=== PATIENT | male | born 1995 | race African-American/Black ===

== ENCOUNTER 2021-10-04 06:45 | Emergency (ER) | payer SELFPAY ==
[2021-10-04] VITALS (21 sets, daily range): BP systolic 125–153; BP diastolic 51–90; PULSE 62–85; RESP 9–20; TEMP 37; O2SAT 98–100
--- NOTE | ~2021-10-04 | XR_ITS ---
EXAMINATION: XR chest 2V DATE: 10/04/2021 07:50 INDICATION: Midsternal chest pain. Epigastric abdominal pain. TECHNIQUE: Frontal and lateral views of the chest were obtained. COMPARISON: None. FINDINGS: The chest demonstrates clear lungs without pneumonia, pleural effusion, or pneumothorax. Th e heart size is normal. There is mild anterior wedging of a midthoracic vertebral body, likely chroni c. IMPRESSION: 1. No acute cardiopulmonary disease. Reviewed, dictated and finalized at location A.
--- NOTE | 2021-10-04 06:55 | ECG_ITS ---
Measurements Intervals [place] Rate: 62 P: 45 HI: 111 QRS: 66 QRSD: 102 T: 44 QT: 391 QTc: 397 Interpretive Statements SINUS RHYTHM WITH SHORT HI INTERVAL NO PREVIOUS ECG AVAILABLE FOR COMPARISON Electronically Signed On 10-04-2021 8:27:40 CDT by Jeff Carrion M.D.
--- NOTE | 2021-10-04 07:09 | ED.ANXIETY ---
HPI - Anxiety General Chief Complaint: Anxiety Stated Complaint: anxiety Time Seen by Provider: 10/04/21 06:59 History of Present Illness HPI narrative: This is a 26-year-old male with reported history of anxiety, presenting emergency department complaining of chest pain for the past hour. He states he started having pressure-like, 4/10, chest pain associated with palpitations at home while at rest that seems different than his usual anxiety attack. This was not associated with nausea or vomiting or cold sweats. He states that the symptoms improved after arrival at the emergency department. Related Data Home Medications Medication Instructions Recorded Confirmed No Home Medications 10/04/21 10/04/21 Allergies Allergy/AdvReac Type Severity Reaction Status Date / Time No Known Allergies Allergy Verified 10/04/21 06:53 Review of Systems Review of Systems: CONSTITUTIONAL: Denies fever, chills, or sweats. EYES: Denies visual changes, redness, or discharge. ENT: Denies rhinorrhea, congestion, sore throat, or otalgia. CARDIOVASCULAR: +chest pain, palpitations (resolved) Denies edema. RESPIRATORY: Denies cough or dyspnea. GASTROINTESTINAL: Denies abdominal pain, nausea, vomiting, or diarrhea. GENITOURINARY: Denies dysuria or hematuria. SKIN: Denies rash or itching. MUSCULOSKELETAL: Denies back pain, joint pain, or myalgia. NEUROLOGIC: Denies headache, numbness, dizziness, or weakness. PSYCHIATRIC: Denies anxiety or depression. Denies SI/HI PMFSH Social History Social History Substance use type: does not use Exam Narrative: GENERAL: Well-appearing, well-nourished, and in no acute distress. HEAD: Normocephalic, atraumatic. EYES: PERRLA and EOMI. ENT: Nares clear, no rhinorrhea or epistaxis. Mucous membranes moist. Oropharynx without tonsillar hypertrophy exudate or other lesions. NECK: Supple. No adenopathy or masses. No carotid bruits or JVD CHEST: Clear to auscultation. No respiratory distress. No wheezes rales or rhonchi HEART: Regular rate and rhythm. No murmur heard. Normal peripheral pulses. ABDOMEN: Soft, nontender, nondistended, normal active bowel sounds. EXTREMITIES: Normal range of motion. No edema. SKIN: Warm, dry, no rash. NEURO: No focal deficits. Alert and oriented x3. PSYCH: Normal mood and affect. Course Course Emergency Course: 08:32 - Troponin negative. Chemistries within normal limits. Chest x-ray unremarkable. Reassessed patient, he states he feels much better. 09:12 - TSH within normal limits. Will discharge patient with primary care follow-up. Discussed return emergency precautions including signs/symptoms of NM. The patient voiced understanding and is comfortable with the plan. Vital Signs Vital signs: Vital Signs Temperature 98.6 F 10/04/21 06:44 Pulse Rate 71 10/04/21 06:44 Respiratory Rate 16 10/04/21 06:44 Blood Pressure 145/87 H 10/04/21 06:44 Pulse Oximetry 100 10/04/21 06:44 Oxygen Delivery Room Air 10/04/21 06:44 Temperature 98.6 F 10/04/21 06:44 Pulse Rate 67 10/04/21 08:04 Respiratory Rate 12 10/04/21 08:04 Blood Pressure 136/78 10/04/21 08:04 Pulse Oximetry 100 10/04/21 08:04 Oxygen Delivery Room Air 10/04/21 06:44 MDM - Anxiety MDM Narrative Medical decision making narrative: Plan: Labs, ECG, reassess Differential Diagnosis Differential diagnosis: Likely acute anxiety and other (ACS, palpitations, arrhythmia, other) Lab Data Result diagrams: 10/04/21 07:15 10/04/21 07:15 Labs: Lab Results 10/04/21 10/04/21 10/04/21 Range/Units 07:14 07:15 07:15 WBC 4.7 (4.5-10.0) K/mm3 RBC 5.65 (4.6-6.20) M/mm3 Hgb 14.8 (14.0-18.0) g/dL Hct 44.6 (42.0-52.0) % MCV 78.9 L (80-100) fl MCH 26.2 (26-34) pg MCHC 33.2 (32-36) g/dl RDW 12.6 (11.5-14.5) % Plt Count 216 (150-375) k/mm3 MPV 11.2 H (7.4-10.4) fl Immature Gran % (Auto) 0.4 (0
[2021-10-04 07:30] LABS: Basophils Percent Auto 0.2 % (0.2-1.2); Eosinophils Absolute Auto 0.1 K/mm3 (0-0.3); Eosinophils Percent Auto 1.7 % (0-4.4); Hematocrit 44.6 % (42.0-52.0); Hemoglobin 14.8 g/dL (14.0-18.0); Immature Granulocyte Absolute 0.02 K/mm3 (0.00-0.031); Immature Granulocyte Percent A 0.4 % (0-0.5); Lymphocytes Absolute Auto 1.08 K/mm3 (0.9-3.2); Lymphocytes Percent Auto 23.2 % (18.3-44.2); Mean Corpuscular HGB Conc 33.2 g/dl (32-36); Mean Corpuscular Hemoglobin 26.2 pg (26-34); Mean Corpuscular Volume 78.9 fl (80-100); Mean Platelet Volume 11.2 fl (7.4-10.4); Monocytes Absolute Auto 0.6 K/mm3 (0.1-0.6); Monocytes Percent Auto 11.8 % (2.6-8.5); Neutrophils Absolute Auto 2.9 K/mm3 (1.3-6.7); Neutrophils Percent Auto 62.7 % (45.5-73.1); Platelet Count Result 216 k/mm3 (150-375); Red Blood Count 5.65 M/mm3 (4.6-6.20); Red Cell Distribution Width 12.6 % (11.5-14.5); White Blood Count 4.7 K/mm3 (4.5-10.0)
[2021-10-04 07:44] LABS: Alanine Aminotransferase 37 U/L (6-50); Albumin Level 4.9 g/dL (3.5-5.1); Alkaline Phosphatase 46 U/L (38-126); Anion Gap 15 mmol/L (8-16); Aspartate Amino Transferase 54 U/L (17-59); Blood Urea Nitrogen 10 mg/dL (9-20); Calcium 9.3 mg/dL (8.4-10.2); Carbon Dioxide 24 mmol/L (22-30); Chloride 99 mmol/L (98-107); Estimated CRCL calculation 96 ml/min; Estimated Glomerular Filt Rate > 60; Glucose 103 mg/dL (65-110); Potassium 3.4 mmol/L (3.4-5.0); Sodium 138 mmol/L (137-145)
[2021-10-04 07:55] LABS: Troponin I < 0.012 ng/mL (0.000-0.034)
== END 2021-10-04 09:35 | disposition home or self-care (01) ==
PROVIDERS: Emergency Provider Preventive Medicine Aerospace Medicine
DX: F41.9 Anxiety disorder, unspecified (principal); F45.8 Other somatoform disorders
CPT/HCPCS: 36415; 71046; 80053; 84443; 84484; 85025; 93005; 99284

== ENCOUNTER 2021-12-20 05:43 | Emergency (ER) | payer BC, MEDICAID, SELFPAY ==
[2021-12-20 05:51] VITALS: BP 162/66; PULSE 69; RESP 16; TEMP 36.7; O2SAT 100
--- NOTE | 2021-12-20 06:10 | ED.GENADULT ---
HPI - General Adult General Chief complaint: Anxiety Stated complaint: arm numbess when i get up Time Seen by Provider: 12/20/21 06:10 History of Present Illness HPI narrative: anxiety this is a 26-year-old male with history of anxiety disorder presenting to the ED with multiple complaints. Patient has been having difficulty sleeping since he had a 1 week ago. He is having trouble sleeping more than 40 minutes over time it frequently wakes up with a pounding heart. Additionally he has been having numbness and tingling over his pinky and ring finger on his left arm and tightness and pain at the base of his neck on his left. The patient has been on Zoloft for a short course in the past and felt better but then stopped taking medication because his condition had improved. Patient has no suicidal or homicidal ideation. Related Data Allergies Allergy/AdvReac Type Severity Reaction Status Date / Time No Known Allergies Allergy Verified 10/04/21 06:53 Review of Systems Review of Systems: CONSTITUTIONAL: admits night sweats. EYES: No eye pain ENT: Denies rhinorrhea CARDIOVASCULAR: Denies palpitations RESPIRATORY: Denies hemoptysis GASTROINTESTINAL: Denies hematemesis GENITOURINARY: Denies hematuria. SKIN: Denies rash MUSCULOSKELETAL: Denies myalgia. NEUROLOGIC: Denies weakness. PSYCHIATRIC: admits anxiety PMFSH Social History Social History Substance use type: does not use Exam Narrative: APPEARANCE: patient appears anxious Head: atraumatic. EYES: EOMI, NOSE: Atraumatic NECK: Trachea midline, patient has significant muscle tightness over the left paracervical muscles and in the trapezius. RESPIRATORY: No increased rate of breathing, clear to auscultation bilaterally CARDIOVASCULAR: RRR, ABDOMINAL: Non-distended MUSCULOSKELETAl: No obvious deformities NEURO: Alert. Cranial nerves visually intact. Moving 4/4 extremities. Normal gait SKIN:: Warm, dry. Normal color PSYCHIATRIC: anxious Course Vital Signs Vital signs: Vital Signs Temperature 98.1 F 12/20/21 05:51 Pulse Rate 69 12/20/21 05:51 Respiratory Rate 16 12/20/21 05:51 Blood Pressure 162/66 H 12/20/21 05:51 Pulse Oximetry 100 12/20/21 05:51 Oxygen Delivery Room Air 12/20/21 05:51 Temperature 98.1 F 12/20/21 05:51 Pulse Rate 69 12/20/21 05:51 Respiratory Rate 16 12/20/21 05:51 Blood Pressure 162/66 H 12/20/21 05:51 Pulse Oximetry 100 12/20/21 05:51 Oxygen Delivery Room Air 12/20/21 05:51 Medical Decision Making MDM Narrative Medical decision making narrative: This is a 26-year-old male coming to ED with multiple complaints. Many of them are stress related. His physical complaints consist of left-sided neck pain and paresthesias over his pinky and ring finger. This corresponds to a C8 cervical radiculopathy. Patient will be given Robaxin, Motrin Tylenol. In terms of the patient's anxiety he would like a primary care physician in which he could follow-up to manage his condition over time. This will be provided. Vital Signs Vital Signs: Vital Signs Temperature 98.1 F 12/20/21 05:51 Pulse Rate 69 12/20/21 05:51 Respiratory Rate 16 12/20/21 05:51 Blood Pressure 162/66 H 12/20/21 05:51 Pulse Oximetry 100 12/20/21 05:51 Oxygen Delivery Room Air 12/20/21 05:51 Temperature 98.1 F 12/20/21 05:51 Pulse Rate 69 12/20/21 05:51 Respiratory Rate 16 12/20/21 05:51 Blood Pressure 162/66 H 12/20/21 05:51 Pulse Oximetry 100 12/20/21 05:51 Oxygen Delivery Room Air 12/20/21 05:51 Discharge Plan Discharge Clinical Impression: Acute anxiety, Cervical radiculopathy at C8 Patient Disposition: Home, Self-Care Condition: Stable Instructions: Antibiotic Form, Cervical Radiculopathy (ED), Stress (ED), Anxiety (ED) Additional Instructions: The pain in your neck and tingling your hand are consistent with cervical radiculopathy. Please take Mo
[2021-12-20] MEDS: IBUPROFEN 400 MG TABLET 800 MG PO (06:25)
[2021-12-20] MEDS: methocarbamoL 750 MG TABLET PO (06:25)
[2021-12-20] MEDS: ACETAMINOPHEN 500 MG TABLET 1000 MG PO (06:25)
== END 2021-12-20 06:43 | disposition home or self-care (01) ==
PROVIDERS: Emergency Provider Emergency Medicine
DX: F41.9 Anxiety disorder, unspecified (principal); M54.12 Radiculopathy, cervical region
CPT/HCPCS: 99283; A9270

== ENCOUNTER 2022-02-17 12:37 | Outpatient (CLI) | payer BC, MEDICAID, SELFPAY ==
--- NOTE | ~2022-02-17 | US_ITS ---
US scrotum doppler INDICATION: Testicular lump for 2 years. TECHNIQUE: Testicular sonogram utilizing grayscale and color Doppler FINDINGS: The testes are normal in size and appearance. No focal lesions are seen. The right testes measures 4 x 2 x 2.6 cm centimeters, and the left testis measures 3.3 x 2 x 2.4 cm cm. There is ade l vascular flow to both testes. There is a right epididymal cyst measuring 1.2 x 0.7 x 0.7 cm, corresponding to the area of palpable concern. There is no varicocele or hydrocele. IMPRESSION: 1. Right epididymal cyst measuring 1.2 cm, corresponding to area of palpable concern. Reviewed, dictated and finalized at location A. [employer] IMPRESSION: 1. Right epididymal cyst measuring 1.2 cm, corresponding to area of palpable c oncern.
== END 2022-02-17 12:38 | disposition home or self-care (01) ==
PROVIDERS: PCP Physician Assistant; Visit Provider Physician Assistant
DX: N50.89 Other specified disorders of the male genital organs (principal); N50.3 Cyst of epididymis
CPT/HCPCS: 76870; 93976

== ENCOUNTER 2022-05-28 02:35 | Emergency (ER) | payer MEDICAID, SELFPAY ==
[2022-05-28 02:38] VITALS: BP 136/84; PULSE 62; RESP 19; TEMP 36.3; O2SAT 100
--- NOTE | 2022-05-28 03:32 | ECG_ITS ---
Measurements Intervals [place] Rate: 59 P: 47 [place]: 116 QRS: 64 QRSD: 99 T: 44 QT: 397 QTc: 394 Interpretive Statements SINUS BRADYCARDIA WITH SINUS ARRHYTHMIA WITH SHORT WA INTERVAL EARLY REPOLARIZATION COMPARED TO ECG 10/04/2021 07:00:52 SINUS BRADYCARDIA NOW PRESENT SINUS ARRHYTHMIA NOW PRESENT Electronically Signed On 05-28-2022 9:23:10 CDT by Tari Bruno M.D.
--- NOTE | 2022-05-28 03:47 | ED.GENADULT ---
HPI - General Adult General Chief complaint: Unspecified Stated complaint: Muscle spasms, ,cold sweats Time Seen by Provider: 05/28/22 03:26 History of Present Illness HPI narrative: 26-year-old gentleman who presents the emergency department with chief complaint of muscle spasms. Patient states that few days ago he had a few drinks and then had some spasms in his body patient thought he was dehydrated drink a lot of sports drinks and then today had another episode where he felt as though his muscles were spasming the patient states that he had no loss of consciousness this no loss of bowel or bladder control reports that he looked on [employer] and thought that he could be having a seizure the patient states that he also has been out of his Protonix and has been having some epigastric discomfort the patient does report that he has not followed up and had an endoscopy done Related Data Home Medications Medication Instructions Recorded Confirmed pantoprazole 40 mg tablet,delayed mg PO 05/28/22 release Allergies Allergy/AdvReac Type Severity Reaction Status Date / Time No Known Allergies Allergy Verified 05/28/22 02:48 Review of Systems Review of Systems: A 10 system review of systems was completed on the patient and is negative except for what is stated in the HPI. Nursing and ancillary documentation was reviewed. [facility] Social History Social History Substance use type: does not use Exam Narrative: GENERAL: Well-appearing, well-nourished, and in no acute distress. HEAD: Normocephalic, atraumatic. EYES: PERRLA and EOMI. ENT: Nares clear, no rhinorrhea or epistaxis. Mucous membranes moist. NECK: Supple. CHEST: Clear to auscultation. No respiratory distress. HEART: Regular rate and rhythm. No murmur heard. Normal peripheral pulses. ABDOMEN: Soft, minimal tenderness in the epigastric region, nondistended, normal active bowel sounds. EXTREMITIES: Normal range of motion. No edema. SKIN: Warm, dry, no rash. NEURO: No focal deficits. Alert and oriented x3. PSYCH: Normal mood and affect. Course Vital Signs Vital signs: Vital Signs Temperature 36.3 C L 05/28/22 02:38 Pulse Rate 62 05/28/22 02:38 Respiratory Rate 19 05/28/22 02:38 Blood Pressure 136/84 05/28/22 02:38 Pulse Oximetry 100 05/28/22 02:38 Oxygen Delivery Room Air 05/28/22 02:38 Temperature 36.3 C L 05/28/22 02:38 Pulse Rate 62 05/28/22 02:38 Respiratory Rate 19 05/28/22 02:38 Blood Pressure 136/84 05/28/22 02:38 Pulse Oximetry 100 05/28/22 02:38 Oxygen Delivery Room Air 05/28/22 02:38 Medical Decision Making MDM Narrative Medical decision making narrative: Differential diagnosis includes dysrhythmia, electrolyte abnormality, dehydration, gastroesophageal reflux disease. Oratory studies were obtained which showed potassium of 3.8. Magnesium was within normal limits calcium was also within normal limits. LFTs were normal EKG is sinus rhythm rate of [address] elevation or ST depression Patient was given a dose of potassium in the emergency department and the patient will be discharged home with a prescription for Protonix as he has been out of his home medication Vital Signs Vital Signs: Vital Signs Temperature 36.3 C L 05/28/22 02:38 Pulse Rate 62 05/28/22 02:38 Respiratory Rate 19 05/28/22 02:38 Blood Pressure 136/84 05/28/22 02:38 Pulse Oximetry 100 05/28/22 02:38 Oxygen Delivery Room Air 05/28/22 02:38 Temperature 36.3 C L 05/28/22 02:38 Pulse Rate 62 05/28/22 02:38 Respiratory Rate 19 05/28/22 02:38 Blood Pressure 136/84 05/28/22 02:38 Pulse Oximetry 100 05/28/22 02:38 Oxygen Delivery Room Air 05/28/22 02:38 Lab Data 05/28/22 04:08 05/28/22 04:08 Labs: Lab Results 05/28/22 05/28/22 Range/Units 04:08 04:08 WBC 6.4 (4.5-10.0) K/mm3 RBC 5.4
[2022-05-28 04:13] LABS: Basophils Percent Auto 0.3 % (0.2-1.2); Eosinophils Absolute Auto 0.2 K/mm3 (0-0.3); Eosinophils Percent Auto 2.4 % (0-4.4); Hematocrit 43.7 % (42.0-52.0); Hemoglobin 14.3 g/dL (14.0-18.0); Immature Granulocyte Absolute 0.03 K/mm3 (0.00-0.031); Immature Granulocyte Percent A 0.5 % (0-0.5); Lymphocytes Absolute Auto 1.97 K/mm3 (0.9-3.2); Mean Corpuscular HGB Conc 32.7 g/dl (32-36); Mean Corpuscular Hemoglobin 26.3 pg (26-34); Mean Corpuscular Volume 80.3 fl (80-100); Mean Platelet Volume 10.6 fl (7.4-10.4); Monocytes Absolute Auto 0.6 K/mm3 (0.1-0.6); Monocytes Percent Auto 10.1 % (2.6-8.5); Neutrophils Absolute Auto 3.5 K/mm3 (1.3-6.7); Neutrophils Percent Auto 55.7 % (45.5-73.1); Platelet Count Result 260 k/mm3 (150-375); Red Blood Count 5.44 M/mm3 (4.6-6.20); Red Cell Distribution Width 13.1 % (11.5-14.5); White Blood Count 6.4 K/mm3 (4.5-10.0)
[2022-05-28 04:32] LABS: Alanine Aminotransferase 25 U/L (6-50); Albumin Level 4.4 g/dL (3.5-5.1); Alkaline Phosphatase 38 U/L (38-126); Anion Gap 5 mmol/L (8-16); Aspartate Amino Transferase 34 U/L (17-59); Bilirubin,Total 0.9 mg/dL (0.2-1.3); Blood Urea Nitrogen 10 mg/dL (9-20); Carbon Dioxide 30 mmol/L (22-30); Chloride 103 mmol/L (98-107); Estimated CRCL calculation 105 ml/min; Estimated Glomerular Filt Rate > 60; Glucose 95 mg/dL (65-110); Magnesium 2.1 mg/dL (1.6-2.3); Potassium 3.8 mmol/L (3.4-5.0); Sodium 138 mmol/L (137-145)
[2022-05-28] MEDS: POTASSIUM CHLORIDE 20 MEQ PACKET (FOR LIQUID) 40 MEQ PO (06:12)
== END 2022-05-28 06:15 | disposition home or self-care (01) ==
PROVIDERS: Emergency Provider Emergency Medicine; PCP Physician Assistant
DX: E87.6 Hypokalemia (principal); K21.9 Gastro-esophageal reflux disease without esophagitis; R25.2 Cramp and spasm
CPT/HCPCS: 36415; 80053; 83735; 85025; 93005; 99283; A9270

== ENCOUNTER 2022-06-26 18:53 | Emergency (ER) | payer MEDICAID, SELFPAY ==
--- NOTE | 2022-06-26 19:05 | ED.GENADULT ---
HPI - General Adult General Chief complaint: Unspecified Stated complaint: tingling sensation throughout body Time Seen by Provider: 06/26/22 19:50 Source: patient Mode of arrival: ambulatory Limitations: no limitations History of Present Illness HPI narrative: 26-year-old male presents with concern of for whole body tingling. Reports symptoms started a week ago. Reports it feels like pins and needles. Reports he has also been having insomnia. Reports he he was diagnosed with anxiety and has had insomnia on and off for 6 months since his son . He reports he has been prescribed sertraline and has taken it briefly but stopped taking it. He denies suicidal ideations. He reports tension headaches, he currently does not have a headache. He denies any vision changes, chest pain, shortness of breath. Denies any recent illness. Patient was seen in the ER and May for muscle cramps and was diagnosed with hypokalemia. He was not put on any long-term medications for hypokalemia MD complaint: Tingling Related Data Home Medications Medication Instructions Recorded Confirmed Protonix 06/26/22 sertraline 50 mg tablet mg 06/26/22 Allergies Allergy/AdvReac Type Severity Reaction Status Date / Time No Known Allergies Allergy Verified 06/26/22 19:17 Review of Systems Review of Systems: CONSTITUTIONAL: Denies malaise, chills, sweats, or fever. EYES: Denies visual changes CARDIOVASCULAR: Denies chest pain, palpitations, or edema. RESPIRATORY: Denies cough or dyspnea. GASTROINTESTINAL: Denies abdominal pain, nausea, vomiting, diarrhea GENITOURINARY: Denies increased urine frequency decreased urine frequency SKIN: Denies rash or itching. MUSCULOSKELETAL: Denies back pain, joint pain, or myalgia. NEUROLOGIC: Denies numbness, weakness, or headache. Reports pins and needle sensation PSYCHIATRIC: Reports anxiety All systems reviewed & are unremarkable except as noted in HPI and below PMFSH Social History Social History Substance use type: does not use Comments At time of signature, agree with nursing past medical, surgical, social and family history. There is no relevant family history pertinent to the presenting complaint Exam Narrative: GENERAL: Well-appearing, well-nourished, and in no acute distress. HEAD: Normocephalic, atraumatic. EYES: PERRLA, sclera clear, and EOMI. No nystagmus. ENT: Nares clear, turbinates pink, no rhinorrhea or epistaxis. Mucous membranes moist. NECK: Supple. No lymphadenopathy. CHEST: No respiratory distress. Clear to auscultation. No bony deformities, no asymmetry. Speaks in full sentences. HEART: Regular rate and rhythm. No murmur heard. Normal peripheral pulses. EXTREMITIES: Normal range of motion. No edema. Normal strength and sensation. SKIN: Warm, dry, no visible rash. NEURO: Alert and oriented x3. No focal deficits. Cranial nerves II through XII grossly intact PSYCH: Normal mood and affect Course Course Emergency Course: Discussed exam findings an EKG findings with patient. Offered transfer to emergency room for further evaluation, particularly electrolyte testing. Patient would prefer to not go to the emergency room tonight, will treat patient with Ativan for short-term use, advised patient to restart hydroxyzine which he has taken in the past and has helped him. Patient is aware of, understands and agrees to treatment plan. Anticipatory guidance given. Patient agrees to follow-up as directed and is aware of reasons to seek care at the emergency department. Portions of this record may have been created with voice recognition software Level of Care: Express Care Visit Vital Signs Vital signs: Vital Signs Temperature 98.2 F 06/26/22 19:10 Pulse Rate 74 06/26/22 19:10 Respiratory Rate 16 06/26/22 19:10 Blood Pressure 150/67 H 06/26/22 19:10 Pulse Oximetry 100 06/26/22 19:10 Oxygen
[2022-06-26 19:10] VITALS: BP 150/67; PULSE 74; RESP 16; TEMP 36.8; O2SAT 100
--- NOTE | 2022-06-26 19:49 | ECG_ITS ---
Measurements Intervals [place] Rate: 64 P: 56 AL: 142 QRS: 64 QRSD: 98 T: 34 QT: 380 QTc: 394 Interpretive Statements SINUS RHYTHM ST ELEVATION IN DIFFUSE LEADS, PROBABLY EARLY REPOLARIZATION MINIMAL Q WAVES- ANTEROLAT/INF LEADS BORDERLINE ECG COMPARED TO ECG 05/28/2022 04:12:36 SINUS RHYTHM NOW PRESENT Electronically Signed On 06-26-2022 20:41:49 CDT by Rajesh Odom D.O.
== END 2022-06-26 20:19 | disposition home or self-care (01) ==
PROVIDERS: Emergency Provider Nurse Practitioner; PCP Physician Assistant
DX: F41.9 Anxiety disorder, unspecified (principal); K21.9 Gastro-esophageal reflux disease without esophagitis
CPT/HCPCS: 93005; 99213; G0463

== ENCOUNTER 2022-08-15 12:33 | Emergency (ER) | payer MEDICAID, SELFPAY ==
[2022-08-15 12:47] VITALS: BP 152/76; PULSE 62; RESP 18; TEMP 36.8; O2SAT 100
--- NOTE | 2022-08-15 12:58 | ED.GENADULT ---
HPI - General Adult General Chief complaint: Unspecified Stated complaint: bleeding from penis, chest tightness Time Seen by Provider: 08/15/22 12:41 Source: patient and EMS Mode of arrival: EMS Limitations: no limitations History of Present Illness HPI narrative: 26 years old -German male came to the emergency room by ambulance from home after noticing blood in his semen, masturbation 40 minutes prior to arrival to the emergency room. Patient denies any aggression or using any tools during his masturbation. Nothing today different than few days ago. He denies any fever, chills, nausea, vomiting. Patient is hyperventilating, shaking, numbness of the hands and feet and jittery feeling inside and shaking outside. History of anxiety and depression. Patient is , denies extramarital relationship. Related Data Home Medications Medication Instructions Recorded Confirmed Protonix 06/26/22 sertraline 50 mg tablet mg 06/26/22 Allergies Allergy/AdvReac Type Severity Reaction Status Date / Time No Known Allergies Allergy Verified 08/15/22 12:45 Review of Systems Review of Systems: All systems reviewed & are unremarkable except as noted in HPI and below PMFSH Social History Social History Substance use type: prescription drug Exam Narrative: General appearance: Well-developed, well-nourished Skin: Normal color Head: Normocephalic, nontraumatic Eyes: Clear conjunctiva ENT: Oropharynx normal, ears normal, nose normal Neck: Supple, nontender Chest and respiratory: Airway patent, no respiratory distress, no accessory muscle use Heart: Regular rate/rhythm Abdomen: Soft, nontender, no organomegaly, quiet bowel sounds. Genital examination showed no acute abnormalities, normal exam of the penis of the scrotum and testicles. No penile discharge. Vascular: Normal peripheral pulses, normal capillary refill. Musculoskeletal: Normal range of motion, nontender back Neurologic: Alert and oriented ?3, [employer] is normal as tested, no gross motor deficit Course Vital Signs Vital signs: Vital Signs Temperature 36.8 C 08/15/22 12:47 Pulse Rate 62 08/15/22 12:47 Respiratory Rate 18 08/15/22 12:47 Blood Pressure 152/76 H 08/15/22 12:47 Pulse Oximetry 100 08/15/22 12:47 Oxygen Delivery Room Air 08/15/22 12:47 Temperature 36.8 C 08/15/22 12:47 Pulse Rate 62 08/15/22 12:47 Respiratory Rate 18 08/15/22 12:47 Blood Pressure 152/76 H 08/15/22 12:47 Pulse Oximetry 100 08/15/22 12:47 Oxygen Delivery Room Air 08/15/22 12:47 Medical Decision Making MDM Narrative Medical decision making narrative: Patient presents with blood in the semen after masturbation, he denies any fever, chills, nausea, vomiting, urinary symptoms, abdominal pain, testicular pain or penile pain or discharge. Physical examination was unremarkable, urine exam came back positive for blood and WBC, Urinary tract infection, prostatitis is a possibility. Patient will be discharged on Cipro 500 twice daily for 7 days and to follow-up with urologist as needed. Hematospermia in men younger than 40 usually is not serious. Differential Diagnosis Differential Diagnosis: Urinary tract infection, STD, prostatitis, trauma Medical Records Medical records reviewed: Yes I reviewed the external patient's medical records. Vital Signs Vital Signs: Vital Signs Temperature 36.8 C 08/15/22 12:47 Pulse Rate 62 08/15/22 12:47 Respiratory Rate 18 08/15/22 12:47 Blood Pressure 152/76 H 08/15/22 12:47 Pulse Oximetry 100 08/15/22 12:47 Oxygen Delivery Room Air 08/15/22 12:
[2022-08-15 13:45] LABS: Appearance Urine Cloudy (Clear); Bilirubin Urine Negative (Negative); Blood Urine 3+ (Negative); Color Urine Yellow (Yellow); Glucose Urine UA Negative (Negative); Ketones Urine Trace mg/dL (Negative); Leukocyte Esterase Ur Negative LEU/UL (Negative); Nitrate Urine Negative (Negative); Protein Urine Negative (Negative); Specific Grav Ur 1.015 (1.001-1.035); Urobilinogen Urine 0.2 mg/dL (<2.0); pH Urine 8.5 (5.0-9.0)
[2022-08-15 13:47] LABS: Add Urine Microscopic? YES
[2022-08-15 13:48] LABS: RBC Urine >75 /hpf (0-2)
[2022-08-15 14:27] VITALS: BP 123/58; PULSE 95; RESP 16; TEMP 36.6; O2SAT 100
== END 2022-08-15 14:35 | disposition home or self-care (01) ==
PROVIDERS: Emergency Provider Emergency Medicine; PCP Physician Assistant
DX: R36.1 Hematospermia (principal); F41.9 Anxiety disorder, unspecified; F32.A Depression, unspecified
CPT/HCPCS: 81001; 87086; 99283

== ENCOUNTER 2022-11-06 23:19 | Emergency (ER) | payer BC, SELFPAY ==
--- NOTE | 2022-11-06 23:22 | ECG_ITS ---
Measurements Intervals [place] Rate: 59 P: 53 [place]: 137 QRS: 60 QRSD: 92 T: 43 QT: 396 QTc: 395 Interpretive Statements SINUS BRADYCARDIA ST ELEVATION IN DIFFUSE LEADS, PROBABLY EARLY REPOLARIZATION BORDERLINE ECG COMPARED TO ECG 06/26/2022 19:55:44 SINUS BRADYCARDIA NOW PRESENT MINIMAL Q WAVES- INF/LAT LEADS Electronically Signed On 11-07-2022 6:32:17 CDT by Rajesh Odom D.O.
[2022-11-06 23:23] VITALS: BP 129/78; PULSE 80; RESP 15; TEMP 37.1; O2SAT 98
[2022-11-07 00:12] LABS: Influenza A QL RT-PCR Negative (Negative); Influenza B QL RT-PCR Negative (Negative); SARS-CoV-2 RNA PCR Positive (Negative)
--- NOTE | 2022-11-07 00:54 | PC.NURSE ---
Patient was called for an ED room at 0053. No answer.
--- NOTE | 2022-11-07 01:09 | PC.NURSE ---
Patient was again called for in triage area for ED room. No answer again.
== END 2022-11-07 00:54 | disposition left against medical advice (07) ==
LOC: ANHED 11-07 01:15
PROVIDERS: Emergency Provider Emergency Medicine; PCP Physician Assistant
DX: R06.02 Shortness of breath (principal)
CPT/HCPCS: 87636; 93005; 99199

== ENCOUNTER 2023-01-12 22:46 | Emergency (ER) | payer SELFPAY ==
--- NOTE | ~2023-01-12 | XR_ITS ---
EXAMINATION: XR chest 1V portable DATE: 01/13/2023 00:17 INDICATION: Cough. Recent upper respiratory tract infection. TECHNIQUE: frontal view of the chest was obtained. COMPARISON: Chest radiograph dated 10/04/2021 FINDINGS: Unchanged mild elevation of left hemidiaphragm. Lungs remain clear with no focal airspace opacities, pulmonary edema, pleural effusion or pneumothorax. The cardiomediastinal silhouette is normal. Mild t horacic dextrocurvature. IMPRESSION: 1. Chronic mild elevation the left hemidiaphragm. No acute cardiopulmonary disease. Reviewed, dictated and finalized at location A. [employer] IMPRESSION: 1. Chronic mild elevation the left hemidiaphragm. No acute cardiopulmonary dise ase.
[2023-01-12 22:53] VITALS: BP 141/69; PULSE 81; RESP 82; TEMP 36.4; O2SAT 100
[2023-01-13 00:06] LABS: Strep Group A RT-PCR NOT DETECTED (Negative)
--- NOTE | 2023-01-13 00:30 | ED.GENADULT ---
[facility] - General Adult General Chief complaint: Upper Respiratory Infection Stated complaint: sore throat Time Seen by Provider: 01/12/23 23:05 Source: patient Mode of arrival: ambulatory Limitations: no limitations History of Present Illness [facility] narrative: This is a 27-year-old male who presents to the ED with chief complaint of sore throat x2 weeks. Bilateral eye drainage noted in the mornings with crusted discharge. Reports redness to the left eye. Both and son sick at home. He was diagnosed with COVID 3 weeks ago. Still having a productive cough to rule out pneumonia. Denies fevers, chills, nausea, vomiting, chest pain, shortness of breath. Related Data Home Medications Medication Instructions Recorded Confirmed Protonix 06/26/22 sertraline 50 mg tablet mg 06/26/22 Allergies Allergy/AdvReac Type Severity Reaction Status Date / Time No Known Allergies Allergy Verified 01/12/23 22:46 Review of Systems Review of Systems: All systems as dictated in [facility] Social History Social History Substance use type: prescription drug Exam Narrative: GENERAL: Well-appearing, well-nourished, and in no acute distress. HEAD: Normocephalic, atraumatic. EYES: PERRLA and EOMI. ENT: Nares clear, no rhinorrhea or epistaxis. Mucous membranes moist. Oropharynx without tonsillar hypertrophy exudate or other lesions. NECK: Supple. No adenopathy or masses. CHEST: No respiratory distress. Clear to auscultation. No wheezes rales or rhonchi HEART: Regular rate and rhythm. No murmur heard. Normal peripheral pulses. ABDOMEN: Soft, nontender, nondistended, normal active bowel sounds. MSK: Normal range of motion. No edema. SKIN: Warm, dry, no rash. NEURO: Alert and oriented x3. No focal deficits. PSYCH: Normal mood and affect. Course Vital Signs Vital signs: Vital Signs Temperature 97.6 F 01/12/23 22:53 Pulse Rate 81 01/12/23 22:53 Respiratory Rate 82 H 01/12/23 22:53 Blood Pressure 141/69 H 01/12/23 22:53 Pulse Oximetry 100 01/12/23 22:53 Oxygen Delivery Room Air 01/12/23 22:53 Temperature 97.9 F 01/13/23 01:07 Pulse Rate 74 01/13/23 01:07 Respiratory Rate 18 01/13/23 01:07 Blood Pressure 138/72 01/13/23 01:07 Pulse Oximetry 98 01/13/23 01:07 Oxygen Delivery Room Air 01/12/23 23:38 Medical Decision Making MDM Narrative Medical decision making narrative: This is a 27-year-old male who presents to the ED with chief complaint of sore throat and cough. He had COVID diagnosed 3 weeks ago. Vitals are normal. Exam is benign. Strep swab is negative. Preliminary read of chest x-ray does not show any obvious pneumonia. Symptoms consistent with viral syndrome. He did have initial complaints of bilateral eye discharge and crusting so eyedrops were sent to the pharmacy for this. Pt will be discharged in stable condition. Return precautions given and supportive measures discussed. Pt is understanding and agreeable with plan for discharge and follow-up with PCP. Vital Signs Vital Signs: Vital Signs Temperature 97.6 F 01/12/23 22:53 Pulse Rate 81 01/12/23 22:53 Respiratory Rate 82 H 01/12/23 22:53 Blood Pressure 141/69 H 01/12/23 22:53 Pulse Oximetry 100 01/12/23 22:53 Oxygen Delivery Room Air 01/12/23 22:53 Temperature 97.9 F 01/13/23 01:07 Pulse Rate 74 01/13/23 01:07 Respiratory Rate 18 01/13/23 01:07 Blood Pressure 138/72 01/13/23 01:07 Pulse Oximetry 98 01/13/23 01:07 Oxygen Delivery Room Air 01/12/23 23:38 Lab Data Labs: Lab Results 01/12/23 Range/Units 23:25 Group A Strep (PCR) Not detected (Negative) Discharge Plan Discharge Clinical Impression: Upper respiratory infection Patient Disposition: Home, Self-Care Condition: Stable Instructions: Antibiotic Form Additional Instructions: Your exam and imaging today
[2023-01-13 01:07] VITALS: BP 138/72; PULSE 74; RESP 18; TEMP 36.6; O2SAT 98
== END 2023-01-13 01:08 | disposition home or self-care (01) ==
PROVIDERS: Emergency Provider Physician Assistant; PCP Physician Assistant
DX: J06.9 Acute upper respiratory infection, unspecified (principal); H10.9 Unspecified conjunctivitis; Z86.16 Personal history of COVID-19
CPT/HCPCS: 71045; 87651; 99283